=== PATIENT | female | born 1980 ===

== ENCOUNTER 2022-01-14 12:23 | Emergency (ER) | payer SELFPAY ==
--- NOTE | 2022-01-14 12:40 | PC.NURSE ---
Addendum entered by Linda Perales RN 01/14/22 12:52: pt conitually asked*, not asking Original Note: pt refusing to answer any triage questions. pt asking when she will be seen by a doctor and given pain meds. pt continually asking what she is here for. pt reports the student truck driver called and told you guys everything. I'm in too much pain to answer . pt asked about her hx of colon resection seen on EMS run sheet pt began raising voice and stating I won't be answering any questions until this pain is under control . this RN explained to patient that I needed to get her triaged so we could get an order set in while she waits for a room. pt unhappy with that answer. told this RN she was uncaring. this RN took off blood pressure cuff and pulse ox. pt stood up out of wheelchair and ambulated with steady gait out triage. pt reports she will go somewhere else to be seen.
== END 2022-01-14 12:40 | disposition left against medical advice (07) ==
LOC: ANHED 13:10
DX: Z53.21 Procedure and treatment not carried out due to patient leaving prior to being seen by health care provider (principal)
CPT/HCPCS: 99199

== ENCOUNTER 2024-09-16 19:07 | Emergency (ER) | payer SELFPAY ==
[2024-09-16 19:22] VITALS: BP 104/69; PULSE 87; RESP 16; TEMP 36.5; O2SAT 99
--- NOTE | 2024-09-16 22:33 | PC.NURSE ---
1st call no answer @ [id number]
--- NOTE | 2024-09-16 23:04 | PC.NURSE ---
2nd call no answer @ [id number]
== END 2024-09-16 23:57 | disposition left against medical advice (07) ==
LOC: ANHED 23:44
PROVIDERS: Emergency Provider Emergency Medicine
DX: R21 Rash and other nonspecific skin eruption (principal)
CPT/HCPCS: 99199